=== PATIENT | female | born 1935 | race Caucasian/White ===

== ENCOUNTER 2020-03-23 15:15 | Inpatient (IN) | payer MEDICARE, OTHER ==
[~2020-03-23] VITALS: Ht 167.6 cm; Wt 74.6 kg
[~2020-03-23 15:15] MED LIST: ATOR20TA PO; DOCU-131 PO; FERR325T16 PO; LISI-167 PO; OMEP-110 PO; VERA180T PO
[2020-03-23] MEDS ORDERED: PANTOPRAZOLE 80 MG in SODIUM CHLORIDE 0.9% 50 ML IV ONE (15:32)
--- NOTE | 2020-03-23 15:32 | NUR ---
Transfer from [place] ED for GI bleed. C/O generalized weakness. Denies pain, SOB, and dizziness. Placed on NIBP, pulse ox, and ekg monitor tech. Will continue to monitor.
[2020-03-23] MEDS ORDERED: ROSU10TA2 PO (16:30)
[2020-03-23] MEDS ORDERED: NITR0.4T41 SL (16:30)
[2020-03-23] MEDS ORDERED: GABA-827 PO (16:30)
[2020-03-23] MEDS ORDERED: PRIM50TA34 PO (16:30)
[2020-03-23] MEDS ORDERED: ISOS20TA3 PO (16:30)
--- NOTE | 2020-03-23 16:53 | NUR ---
Protonix bolus started. Primary RN informed to start drip. Pt given education regarding medication. Verbalized understanding.
[2020-03-23] MEDS: PANTOPRAZOLE 80 MG in SODIUM CHLORIDE 0.9% 100 ML IV SCH (16:55)
--- NOTE | 2020-03-23 17:45 | NUR ---
Assisted to the [facility]. VSS. No other needs.
[2020-03-23] MEDS ORDERED: ONDANSETRON 2MG/ML, 2ML IVPush PRN (18:00)
[2020-03-23] MEDS ORDERED: DOCUSATE 100 MG CAPSULE PO PRN (18:00)
[2020-03-23 18:01] LABS: INTERNATIONAL NORMALIZED RATIO 0.95 (0.93-1.1); PROTHROMBIN TIME 10.1 Seconds (9.6-11.5)
--- NOTE | 2020-03-23 18:42 | NUR ---
Resting in [facility]. Provided with blanket.
--- NOTE | 2020-03-23 18:46 | NUR ---
Attempted report. RN unavailable.
[2020-03-23] MEDS ORDERED: NITROGLYCERIN SL MC SCH (20:00)
[2020-03-23 20:28] VITALS: BP 150/83
[2020-03-23] MEDS ORDERED: GABAPENTIN 400 MG CAPSULE PO SCH (21:00)
[2020-03-23] MEDS ORDERED: NITROGLYCERIN SINGLE TAB 0.4 MG SL PRN (21:00)
[2020-03-23] MEDS: LISINOPRIL 10 MG TABLET PO SCH (21:09)
[2020-03-24 00:08] VITALS: BP 153/77
[2020-03-24] MEDS: PANTOPRAZOLE 80 MG in SODIUM CHLORIDE 0.9% 100 ML IV SCH (01:34)
[2020-03-24 05:46] LABS: MEAN CORPUSCULAR HEMOGLOBIN 28.3 pg (27.0-34.8); MEAN CORPUSCULAR HGB CONC 31.5 g/dL (32.4-35.8); PLATELET COUNT 241 x10^3/uL (130-400); RED BLOOD COUNT 3.62 x10^6/uL (3.82-5.3); RED CELL DISTRIBUTION WIDTH 21.4 % (9.6-15.2)
[2020-03-24 05:50] LABS: ANION GAP 7 mmol/L (5-15); CALCIUM 8.5 mg/dL (8.5-10.1); CHLORIDE 108 mmol/L (98-107)
[2020-03-24 06:34] LABS: BASOPHILS # (AUTO) 0.02 x10^3/uL (0-0.1); BASOPHILS % (AUTO) 1 % (0-1); EOSINOPHILS # (AUTO) 0.19 x10^3/uL (0-0.4); EOSINOPHILS % (AUTO) 4 % (1-7); LYMPHOCYTES # (AUTO) 0.81 x10^3/uL (1-3.4); LYMPHOCYTES % (AUTO) 19 % (22-44); MD SCAN; MONOCYTES # (AUTO) 0.42 x10^3/uL (0.2-0.8); MONOCYTES % (AUTO) 10 % (2-9); NEUTROPHILS # (AUTO) 2.79 x10^3/uL (1.8-6.8); NEUTROPHILS % (AUTO) 66 % (42-75)
[2020-03-24 07:07] VITALS: BP 146/88
[2020-03-24] MEDS ORDERED: PANTOPRAZOLE 40 MG IV IVPush SCH (07:30)
[2020-03-24] MEDS ORDERED: VERAPAMIL ER 120MG TABLET.ER ONE (08:22)
[2020-03-24] MEDS ORDERED: NITROGLYCERIN SINGLE TAB 0.4 MG SL SCH (09:00)
[2020-03-24] MEDS: LISINOPRIL 10 MG TABLET PO SCH (09:00)
[2020-03-24] MEDS ORDERED: VERAPAMIL ER 180MG TABLET.ER PO SCH (09:00)
[2020-03-24] MEDS ORDERED: FENTANYL PF 100 MCG/2ML ONE (09:15)
[2020-03-24] MEDS ORDERED: MIDAZOLAM 1 MG/ML, 5ML ONE (09:15)
[2020-03-24] MEDS ORDERED: CHLORHEXIDINE 15 ML UDC ONE (09:16)
[2020-03-24 10:47] VITALS: BP 127/86
[2020-03-24 11:51] VITALS: BP 130/79
[2020-03-24 14:37] LABS: OCCULT BLOOD POSITIVE (NEGATIVE)
[2020-03-24] MEDS ORDERED: OMEP-110 PO (16:01)
== END 2020-03-24 17:11 | disposition home or self-care (01) | DRG 378 ==
LOC: ED 18:28 → EDIP 19:23 → 3N 19:34
PROVIDERS: ADMIT Internal Medicine; ATTEND Internal Medicine
PROC: 0DJ08ZZ Inspection of Upper Intestinal Tract, Via Natural or Artificial Opening Endoscopic (ICD-10-PCS; principal; 2020-03-24 10:00)
DX: K92.2 Gastrointestinal hemorrhage, unspecified (principal); D62 Acute posthemorrhagic anemia; I42.2 Other hypertrophic cardiomyopathy; D50.9 Iron deficiency anemia, unspecified; G25.0 Essential tremor; I25.10 Atherosclerotic heart disease of native coronary artery without angina pectoris; E78.5 Hyperlipidemia, unspecified; I10 Essential (primary) hypertension; I34.0 Nonrheumatic mitral (valve) insufficiency; K44.9 Diaphragmatic hernia without obstruction or gangrene; Z96.611 Presence of right artificial shoulder joint; Z96.612 Presence of left artificial shoulder joint; Z96.643 Presence of artificial hip joint, bilateral; Z96.653 Presence of artificial knee joint, bilateral; E86.1 Hypovolemia; G62.9 Polyneuropathy, unspecified; K21.9 Gastro-esophageal reflux disease without esophagitis; M19.90 Unspecified osteoarthritis, unspecified site; Z86.73 Personal history of transient ischemic attack (TIA), and cerebral infarction without residual deficits; Z90.710 Acquired absence of both cervix and uterus; Z98.49 Cataract extraction status, unspecified eye; Z79.899 Other long term (current) drug therapy; Z88.8 Allergy status to other drugs, medicaments and biological substances; Z90.49 Acquired absence of other specified parts of digestive tract
CPT/HCPCS: 36415; 80048; 82272; 83735; 84100; 85014; 85018; 85025; 85610; 87635; 96374; 99152; 99153; G0378; J2250; J3010; C9113